=== PATIENT | female | born 1950 | race Caucasian/White ===

== ENCOUNTER 2017-04-27 13:30 | Inpatient (IN) | payer OTHER, MEDICARE ==
[~2017-04-27] VITALS: Ht 160 cm; Wt 69.0 kg
[2017-05-10] MEDS ORDERED: PANT40TA3 PO (15:23)
[2017-05-10] MEDS ORDERED: HYDR12.57 PO (15:23)
[2017-05-10] MEDS ORDERED: METO25TA3 PO (15:23)
[2017-05-10] MEDS ORDERED: ALPR0.25 PO (15:23)
[2017-05-11] MEDS ORDERED: DEXAMETHASONE SOD PHOS 4 MG/ML VIAL IV ONE (12:00)
[2017-05-11] MEDS ORDERED: LACTATED RINGER'S 1000 ML IV PRN (12:00)
[2017-05-11] MEDS ORDERED: NORMOSOL R INJ 2,000 ML IV ONE (12:00)
[2017-05-11] MEDS ORDERED: ONDANSETRON HCL 4 MG/2 ML VIAL IV ONE (12:00)
[2017-05-11] MEDS ORDERED: SODIUM CHLORID 0.9% 500 ML IV PRN (12:00)
[2017-05-11] MEDS ORDERED: INSULIN HUMAN REGULAR 1,000 UNITS/10 ML VIAL SQ PRN (12:00)
[2017-05-11] MEDS ORDERED: CHLORHEXIDINE GLUCONATE 2 % 1 PACK (2 CLOTHS) TOPICAL PRN (12:00)
[2017-05-11] MEDS ORDERED: METOPROLOL TARTRATE 25 MG TAB PO PRN (12:00)
[2017-05-11] MEDS ORDERED: POVIDONE IODINE 5% (ANTISEPSIS KIT) 4 APPLICATIONS EACH NARE PRN (12:00)
[2017-05-11] MEDS ORDERED: LIDOCAINE HCL 1% PF 5 ML SYRINGE OTHER ONE (12:00)
[2017-05-11] MEDS ORDERED: PHENYLEPH/NS 1000 MCG/10 ML SYR IV ONE (12:00)
[2017-05-11] MEDS ORDERED: PROPOFOL 200 MG/20 ML AMP IV ONE (12:00)
[2017-05-11] MEDS ORDERED: ROCURONIUM INJ 50 MG/5 ML SYRINGE IV PUSH ONE (12:00)
[2017-05-11] MEDS ORDERED: ePHEDrine/NS 25 MG/5 ML SYRINGE IV ONE (12:00)
[2017-05-11 12:34] LABS: PROTHROMBIN TIME - PATIENT 10.3 SEC (9.8-11.6)
[2017-05-11] MEDS ORDERED: ceFAZolin INJ 1,000 MG VIAL ONE (13:06)
[2017-05-11] MEDS ORDERED: ACETAMINOPHEN 1000 MG/100 ML 100 ML IV ONE (15:19)
[2017-05-11] MEDS ORDERED: SUGAMMADEX SODIUM 200 MG/2 ML VIAL IV PUSH ONE (16:36)
[2017-05-11] MEDS ORDERED: MORPHINE SULFATE 4 MG/ML INJ IV PUSH PRN (16:45)
[2017-05-11] MEDS ORDERED: ONDANSETRON HCL 4 MG/2 ML VIAL IV PUSH PRN (16:45)
[2017-05-11] MEDS ORDERED: ALPRAZolam 0.25 MG TAB PO PRN (17:00)
[2017-05-11] MEDS: FAMOTIDINE 20 MG/2 ML VIAL IV PUSH SCH (17:00)
[2017-05-11] MEDS: SODIUM CHLOR 0.9% 1000 ML INJ 1,000 ML IV SCH (17:15)
[2017-05-11] MEDS ORDERED: DO NOT ADM ANY ANTICOAGULANT DRUGS PRN (17:17)
[2017-05-11] MEDS ORDERED: MIDAZOLAM HCL 2 MG/2 ML VIAL ONE (17:21)
--- NOTE | 2017-05-11 17:30 | MP ---
cc: Branden Mcgowan MD DATE OF OPERATION: 05/11/2017 PREOPERATIVE DIAGNOSIS: Left renal mass. POSTOPERATIVE DIAGNOSIS: Left renal mass. PROCEDURE PERFORMED: Robotic-assisted laparoscopic left radical nephrectomy. SURGEON: Branden Mcgowan MD ANALOG DESIGN ENGINEER: Obey Gillespie MD ANESTHESIA: General. COMPLICATIONS: None. PREOPERATIVE ANTIBIOTICS: Ancef 1 gram IV. DRAINS: Shabazz catheter. SPECIMENS: Left kidney for permanent. BLOOD LOSS: 100 mL FLUIDS: 2 L. DISPOSITION: Stable to recovery. INDICATIONS: The patient is a 67-year-old female who was found to have a large left renal mass consistent with renal cell carcinoma. Treatment options were discussed including open versus laparoscopic radical nephrectomy. She elected to proceed with laparoscopic radical nephrectomy. After risks, benefits, and alternatives were explained to the patient including the risk of renal failure, anesthetic risks, risk of conversion to open, patient elected to proceed. Informed consent was obtained. DETAILS OF PROCEDURE: The patient was properly identified, brought back to the operating room, was laid supine on the operating table. Appropriate timeout was performed. Under direction of anesthesiology, patient was immediately induced under general anesthetic. Preoperative antibiotics in the form of Ancef 1 gram IV was given 1 hour prior to procedure. A 16-Kazakh Shabazz catheter was then placed under sterile technique and clear yellow urine returned. The patient was then placed in right lateral decubitus position with left side up. All pressure points were padded. The patient was then prepped and draped in normal sterile surgical fashion. A stab incision was made superior and lateral to the umbilicus, triangulated off of the xiphoid process and 12th rib. Penetrating towel clips were then used to grasp each side of the incision and were held up as I passed the Veress needle into the abdominal cavity. Insufflation was then achieved. Under direct visualization, I then passed a 12 mm long camera port. The abdominal cavity was inspected. She had some midline adhesions from her prior hysterectomy. She also had a very small anterior abdominal adhesion as well. There was no evidence of intra-abdominal injury including bleeding. At this time, 3 other ports were then placed under direct visualization, including two 8 mm robotic ports that were triangulated off the camera port, as well as a 12 mm fleet administrative assistant port in the midline superior to umbilicus. The robot was then brought in position. I began by taking the white line of Toldt down, reflecting the colon medially, which exposed the retroperitoneum. The patient had a very large kidney with a significant amount of perinephric fat, likely from the large mass. There were also several mini parasitic vessels. These were taken with electrocautery. At this time, as I dissected the colon off of the kidney, this exposed the left gonadal vein and ureter. I found a plane between the ureter and the psoas muscle. I then marched posterior dissection off the kidney towards the renal hilum following the left renal vein. I found the left gonadal vein attaching to the left renal vein. This was divided and taken with a robotic vessel sealer. At this time, the vein and artery were each circumferentially dissected and taken separately with the endovascular MARY stapler. There was only a single artery and vein. At this time, the lateral and superior attachments were then divided with both electrocautery and blunt dissection. The adrenal gland was spared. At this time, I then took the ureter inferiorly and the entire kidney was free. It was then placed in an EndoCatch bag for later removal. The renal fossa and adrenal bed were inspected for any bleeding. of Liz 3 gm were then applied to this area for hemostatic purposes. The kidney was then extracted through the left lower quadrant incision after extending the incision. It was then closed with a running 1-0 PDS. Several separate 1-0 PDS were placed as well, [id number] stitches. A second look was then placed in the abdominal cavity. The underside of the incision appeared to be free of bowel. There was no evidence of any bleeding within the abdominal cavity. All ports were removed under direct visualization. Incisions were closed with 3-0 Vicryl and 4-0 Monocryl. The sponge, instrument and needle count was correct at the end the case. This concluded the procedure. The patient was extubated and sent to recovery in stable condition. She will be transferred to the floor for routine postoperative care. MD BRAIN Guy/ALICIA , 04:56 PM , 05:29 PM
[2017-05-11 17:53] LABS: AUTOMATED NEUTROPHIL # 9.2 TH/MM3 (1.8-7.7); BASOPHIL % 0.2 % (0.0-2.0); EOSINOPHIL % 0.1 % (0.0-4.0); HEMOGLOBIN 10.5 GM/DL (11.6-15.3); LYMPH % 13.5 % (9.0-44.0); LYMPHOCYTE # 1.5 TH/MM3 (1.0-4.8); MEAN CORPUSCULAR HEMOGLOBIN 26.4 PG (27.0-34.0); MEAN CORPUSCULAR HGB CONC 33.9 % (32.0-36.0); MEAN PLATELET VOLUME 7.1 FL (7.0-11.0); MONO % 3.1 % (0.0-8.0); MONOCYTE # 0.3 TH/MM3 (0-0.9); NEUT % 83.1 % (16.0-70.0); PLATELET COUNT 272 TH/MM3 (150-450); RED BLOOD COUNT 3.98 MIL/MM3 (4.00-5.30); RED CELL DISTRIBUTION WIDTH 15.8 % (11.6-17.2); WHITE BLOOD COUNT 11.1 TH/MM3 (4.0-11.0)
[2017-05-11 18:10] LABS: BICARBONATE 24.4 MEQ/L (21.0-32.0); CREATININE 1.04 MG/DL (0.50-1.00)
[2017-05-11] MEDS ORDERED: POTASSIUM CHLORIDE 10 MEQ CAP PO ONE (18:45)
[2017-05-11] MEDS ORDERED: MAGNESIUM SULFATE 1 GM PREMIX 100 ML IV PRN (18:45)
[2017-05-11] MEDS ORDERED: POTASSIUM CHLORIDE 20 MEQ PWD PACKET PO ONE (18:45)
[2017-05-11 18:51] LABS: MAGNESIUM 1.9 MG/DL (1.5-2.5)
[2017-05-11] MEDS ORDERED: *morphine SULFATE 4 MG/ML PERIprocedure ONLY ONE (19:00)
--- NOTE | 2017-05-11 19:36 | RADRPT ---
EXAM DATE/TIME: 05/11/2017 18:16 [facility] COMPARISON: No previous studies available for comparison. INDICATIONS : Central line placement done in or. MEDICAL HISTORY : None. SURGICAL HISTORY : None. ENCOUNTER: Initial ACUITY: 1 day PAIN SCORE: 0/10 LOCATION: Bilateral chest FINDINGS: Right-sided central line tip in superior vena cava without pneumothorax. Subsegmental perihilar and b asilar airspace disease. Extensive air in the subcutaneous tissues of the left chest extending into t he left breast of unknown etiology. Also subcutaneous air in the lower right chest. CONCLUSION: 1. Right central line in superior vena cava without pneumothorax. 2. Extensive subcutaneous air in the lower chest left greater than right. Anuj Gibbs MD on May 11, 2017 at 19:33 Board Certified Radiologist. This report was verified electronically.
[2017-05-11 20:45] VITALS: BP 118/58; PULSE 75; RESP 17; TEMP 97.7; O2SAT 97
[2017-05-11] MEDS: METOPROLOL TARTRATE 25 MG TAB PO SCH (21:03)
[2017-05-11] MEDS: DOCUSATE SODIUM 100 MG CAP PO SCH (21:03)
[2017-05-11] MEDS: ACETAMINOPHEN 1000 MG/100 ML 100 ML IV SCH (21:06)
[2017-05-11 23:45] VITALS: BP 105/56; PULSE 73; RESP 16; TEMP 98.1; O2SAT 97
[2017-05-12] MEDS: SODIUM CHLOR 0.9% 1000 ML INJ 1,000 ML IV SCH ×2 (00:45→08:45)
[2017-05-12] MEDS: ACETAMINOPHEN 1000 MG/100 ML 100 ML IV SCH ×2 (04:15→08:58)
[2017-05-12] MEDS: FAMOTIDINE 20 MG/2 ML VIAL IV PUSH SCH (04:15)
[2017-05-12 04:30] VITALS: BP 97/53; PULSE 65; RESP 16; TEMP 97.4; O2SAT 96
[2017-05-12 07:35] VITALS: BP 103/56; PULSE 60; RESP 18; TEMP 97.5; O2SAT 100
[2017-05-12 07:45] LABS: HEMATOCRIT 31.2 % (35.0-46.0); HEMOGLOBIN 10.4 GM/DL (11.6-15.3); MEAN CELL VOLUME 79.3 FL (80.0-100.0); MEAN CORPUSCULAR HEMOGLOBIN 26.6 PG (27.0-34.0); MEAN CORPUSCULAR HGB CONC 33.5 % (32.0-36.0); MEAN PLATELET VOLUME 7.6 FL (7.0-11.0); PLATELET COUNT 251 TH/MM3 (150-450); RED BLOOD COUNT 3.93 MIL/MM3 (4.00-5.30); RED CELL DISTRIBUTION WIDTH 15.8 % (11.6-17.2); WHITE BLOOD COUNT 7.3 TH/MM3 (4.0-11.0)
[2017-05-12 07:55] LABS: BICARBONATE 23.9 MEQ/L (21.0-32.0); CALCIUM 8.1 MG/DL (8.5-10.1); CREATININE 1.3 MG/DL (0.50-1.00)
[2017-05-12] MEDS: HYDROCHLOROTHIAZIDE 12.5 MG CAP PO SCH (08:55)
[2017-05-12] MEDS: METOPROLOL TARTRATE 25 MG TAB PO SCH ×2 (08:55→20:56)
[2017-05-12] MEDS: DOCUSATE SODIUM 100 MG CAP PO SCH ×2 (08:59→20:56)
[2017-05-12] MEDS: PANTOPRAZOLE SOD 40 MG DELAYED RELEASE TAB PO SCH (08:59)
[2017-05-12 11:56] VITALS: BP 130/69; PULSE 70; RESP 18; TEMP 97.9; O2SAT 96
--- NOTE | 2017-05-12 12:59 | HHI.PR ---
Subjective Patient symptoms today feels good. Denies pain. voiding on own. Has been OOB. tolerating clears. Wants regular food. Denies CP/SOB. Objective Vital Signs Vital Signs Date Time Temp Pulse Resp B/P (MAP) Pulse Ox O2 Delivery O2 Flow Rate FiO2 05/12/17 11:56 97.9 70 18 130/69 (89) 96 05/12/17 09:58 16 05/12/17 09:28 18 05/12/17 07:35 97.5 60 18 103/56 (72) 100 05/12/17 04:30 97.4 65 16 97/53 (68) 96 05/11/17 23:45 98.1 73 16 105/56 (72) 97 05/11/17 20:45 97.7 75 17 118/58 (78) 97 05/11/17 20:40 78 16 122/59 (80) 99 Nasal Cannula 3 05/11/17 20:30 77 16 120/64 (82) 99 Nasal Cannula 3 05/11/17 20:15 76 16 120/59 (79) 99 Nasal Cannula 3 05/11/17 20:00 76 16 116/58 (77) 100 Nasal Cannula 3 05/11/17 19:45 74 16 117/56 (76) 100 Nasal Cannula 3 05/11/17 19:15 72 16 107/59 (75) 100 Nasal Cannula 3 05/11/17 18:45 72 16 117/59 (78) 99 Nasal Cannula 3 05/11/17 18:15 67 16 110/56 (74) 99 Nasal Cannula 3 05/11/17 18:00 66 16 118/55 (76) 99 Nasal Cannula 3 05/11/17 17:45 66 17 109/59 (76) 99 Nasal Cannula 3 05/11/17 17:30 67 16 115/57 (76) 99 Nasal Cannula 3 05/11/17 17:15 69 14 117/64 (81) 100 Nasal Cannula 3 05/11/17 17:12 97.3 72 14 110/60 (77) 96 Nasal Cannula 3 Intake & Output 05/12/17 05/12/17 07:00 19:00 Intake Total 690 ml Output Total 475 ml Balance 215 ml Intake Oral 240 ml IV Total 450 ml Output Urine Total 475 ml # Bowel Movements 0 Result Diagram: 05/12/17 0544 05/12/17543 Objective Remarks NAD. A/O x 3 CTAB RRR abd soft, NT, ND. incisions healing well. Ext NT. No edema. EPc cuffs on and working Medications and IVs Current Medications Medications (Trade) Dose Ordered Sig/Bernard Route Start Time Stop Time Status Last Admin Lactated Ringer's 1,000 ml @ 30 mls/hr Q24H PRN IV 05/11/17 12:00 05/14/17 11:59 05/11/17 12:35 Sodium Chloride 500 ml @ 30 mls/hr [id number] PRN IV 05/11/17 12:00 05/14/17 11:59 (Lopressor) 25 mg SEISMIC OBSERVER PRN PO 05/11/17 12:00 05/14/17 11:59 (Betadine 5% Antisepsis Kit) 1 applic SEISMIC OBSERVER PRN EACH NARE 05/11/17 12:00 05/14/17 11:59 05/11/17 12:35 (Chlorhexidine 2% Cloth) 3 pack SEISMIC OBSERVER PRN TOPICAL 05/11/17 12:00 05/14/17 11:59 05/11/17 12:35 (NovoLIN R INJ) See Protocol Table ... SEISMIC OBSERVER PRN SQ 05/11/17 12:00 05/14/17 11:59 Sodium Chloride 1,000 ml @ 125 mls/hr Q8H IV 05/11/17 16:45 05/12/17 00:45 (Colace) 100 mg BID PO 05/11/17 21:00 05/12/17 08:59 (Roxicodone) 10 mg Q4H PRN PO 05/11/17 16:45 05/12/17 08:58 Acetaminophen 100 ml @ 400 mls/hr Q6H IV 05/11/17 21:00 05/12/17 08:58 (Zofran Inj) 4 mg Q6HR PRN IV PUSH 05/11/17 16:45 (Morphine Inj) 4 mg Q3H PRN IV PUSH 05/11/17 16:45 05/11/17 22:33 (Xanax) 0.25 mg Q6H PRN PO 05/11/17 17:00 05/12/17 04:15 (Microzide) 12.5 mg DAILY PO 4/4/18 09:00 (Lopressor) 25 mg BID PO 05/11/17 21:00 05/11/17 21:03 (Protonix) 40 mg DAILY PO 05/12/17 09:00 05/12/17 08:59 Miscellaneous Information ALL NURSING DEPARTME... UNSCH PRN .XX 05/11/17 17:17 05/12/17 17:16 Magnesium Sulfate/ Dextrose 100 ml @ 100 mls/hr ONCE PRN IV 05/11/17 18:45 05/12/17 23:59 (Pepcid) 10 mg BID PO 05/12/17 21:00 Assessment and Plan Assessment and Plan POD#1 s/p Left robotic Radical Nephrectomy, hypokalemia -Hgb stable. Hemodynamically stable. -Hypokalemia resolved. Repeat in A.M. -Advance diet -Ambulate, IS -Creatinine elevated as expected -Likely d/c home tomorrow Branden Mcgowan MD May 12, 2017 12:59
[2017-05-12] MEDS ORDERED: OXYC1TAB63 PO (13:02)
[2017-05-12] MEDS ORDERED: DOCU1CAP39 PO (13:02)
--- NOTE | 2017-05-12 13:24 | EKG ---
Date Performed: 05/11/2017 Time Performed: 12:10:05 PTAGE: 67 years EKG: Sinus rhythm MINIMAL VOLTAGE CRITERIA FOR LVH, CONSIDER NORMAL VARIANT NONSPECIFIC T-WAVE ABNORMALITY BORDERLINE ECG NO PREVIOUS TRACING DOCTOR: Roland Dickinson Interpretating Date/Time 05/12/2017 13:23:48
[2017-05-12] MEDS: oxyCODONE/ACETAMINOPHEN 5 MG/325 MG TAB PO PRN ×2 (15:22→21:00)
[2017-05-12 16:00] VITALS: BP 123/58; PULSE 80; RESP 18; TEMP 97.6; O2SAT 96
[2017-05-12 20:00] VITALS: BP 115/58; PULSE 84; RESP 18; TEMP 98.3; O2SAT 97
[2017-05-12] MEDS: FAMOTIDINE 20 MG TAB PO SCH (21:02)
[2017-05-13] VITALS: BP 103/50; PULSE 79; RESP 18; TEMP 97.3; O2SAT 95
[2017-05-13 04:30] VITALS: BP 109/58; PULSE 77; RESP 16; TEMP 96.6; O2SAT 97
[2017-05-13 06:30] LABS: BICARBONATE 25.1 MEQ/L (21.0-32.0); CALCIUM 8.1 MG/DL (8.5-10.1); CREATININE 1.41 MG/DL (0.50-1.00); MAGNESIUM 2.2 MG/DL (1.5-2.5)
[2017-05-13 08:00] VITALS: BP 110/52; PULSE 84; RESP 18; TEMP 97.5; O2SAT 97
[2017-05-13] MEDS: HYDROCHLOROTHIAZIDE 12.5 MG CAP PO SCH (09:00)
[2017-05-13] MEDS: FAMOTIDINE 20 MG TAB PO SCH (09:00)
[2017-05-13] MEDS: METOPROLOL TARTRATE 25 MG TAB PO SCH (09:00)
[2017-05-13] MEDS: DOCUSATE SODIUM 100 MG CAP PO SCH (09:22)
[2017-05-13] MEDS: PANTOPRAZOLE SOD 40 MG DELAYED RELEASE TAB PO SCH (09:23)
[2017-05-13] MEDS: oxyCODONE/ACETAMINOPHEN 5 MG/325 MG TAB PO PRN ×2 (09:26→15:36)
[2017-05-13 12:00] VITALS: BP 124/64; PULSE 77; RESP 18; TEMP 97.3; O2SAT 97
--- NOTE | 2017-05-13 14:32 | HHI.PR ---
Subjective Patient symptoms today Pt is s/p Left robotic radical nephrectomy. POD #2. Had hypokalemia post/op, corrected now. no pain, not using pain meds a lot. no f/c/n/v, labs are ok, has slightly elevated Cr. Ambulates and tolerated normal diet well. Voids without difficulties. No BM yet, + belching. Objective Vital Signs Vital Signs Date Time Temp Pulse Resp B/P (MAP) Pulse Ox O2 Delivery O2 Flow Rate FiO2 05/13/17 12:00 97.3 77 18 124/64 (84) 97 05/13/17 08:00 97.5 84 18 110/52 (71) 97 05/13/17 04:30 96.6 77 16 109/58 (75) 97 05/13/17 00:00 97.3 79 18 103/50 (67) 95 05/12/17 20:00 98.3 84 18 115/58 (77) 97 05/12/17 16:22 16 05/12/17 16:00 97.6 80 18 123/58 (79) 96 Intake & Output 05/13/17 05/13/17 07:00 19:00 Intake Total 120 ml Balance 120 ml Intake Oral 120 ml # Voids 1 # Bowel Movements 0 Result Diagram: 05/12/17 0544 05/13/17 0506 Objective Remarks NAD. A/O x 3 Lungs are clear, no wheezing. RRR abd soft, NT, ND. incisions healing well. Medications and IVs Current Medications Medications (Trade) Dose Ordered Sig/Bernard Route Start Time Stop Time Status Last Admin Lactated Ringer's 1,000 ml @ 30 mls/hr Q24H PRN IV 05/11/17 12:00 05/14/17 11:59 05/11/17 12:35 Sodium Chloride 500 ml @ 30 mls/hr [id number] PRN IV 05/11/17 12:00 05/14/17 11:59 (Lopressor) 25 mg TRANSPLANT SURGEON PRN PO 05/11/17 12:00 05/14/17 11:59 (Betadine 5% Antisepsis Kit) 1 applic TRANSPLANT SURGEON PRN EACH NARE 05/11/17 12:00 05/14/17 11:59 05/11/17 12:35 (Chlorhexidine 2% Cloth) 3 pack TRANSPLANT SURGEON PRN TOPICAL 05/11/17 12:00 05/14/17 11:59 05/11/17 12:35 (NovoLIN R INJ) See Protocol Table ... TRANSPLANT SURGEON PRN SQ 05/11/17 12:00 05/14/17 11:59 (Colace) 100 mg BID PO 05/11/17 21:00 05/13/17 09:22 (Zofran Inj) 4 mg Q6HR PRN IV PUSH 05/11/17 16:45 (Morphine Inj) 4 mg Q3H PRN IV PUSH 05/11/17 16:45 05/11/17 22:33 (Xanax) 0.25 mg Q6H PRN PO 05/11/17 17:00 05/12/17 04:15 (Microzide) 12.5 mg DAILY PO 05/12/17 09:00 (Lopressor) 25 mg BID PO 05/11/17 21:00 05/12/17 20:56 (Protonix) 40 mg DAILY PO 05/12/17 09:00 05/13/17 09:23 (Pepcid) 10 mg BID PO 05/12/17 21:00 05/12/17 21:02 (Percocet 5-325 Mg) 2 tab Q4H PRN PO 05/12/17 13:00 05/13/17 09:26 Assessment and Plan Assessment and Plan POD#2 s/p Left robotic Radical Nephrectomy, hypokalemia -Hgb stable. Hemodynamically stable. -Hypokalemia resolved. - tolerates regular diet well -Ambulates without difficulties -Creatinine elevated as expected -Discharge is initiated Pt to be d/c home today with Rx for Stool softner and pain meds Follow up with Dr Mcgowan in clinic in 1 week Darrian Horvath May 13, 2017 14:32
== END 2017-05-13 15:41 | disposition home or self-care (01) | DRG 658 ==
LOC: HSDI 05-11 11:21 → N06B 05-11 20:47
PROVIDERS: ADMIT Urology; ATTEND Urology
PROC: 8E0W4CZ Robotic Assisted Procedure of Trunk Region, Percutaneous Endoscopic Approach (ICD-10-PCS; 2017-05-11)
PROC: 0T9B70Z Drainage of Bladder with Drainage Device, Via Natural or Artificial Opening (ICD-10-PCS; 2017-05-11)
PROC: 0TT14ZZ Resection of Left Kidney, Percutaneous Endoscopic Approach (ICD-10-PCS; principal; 2017-05-11 13:28)
DX: D49.512 Neoplasm of unspecified behavior of left kidney (principal); E87.6 Hypokalemia
CPT/HCPCS: 36430; 71045; 80048; 83735; 84132; 85025; 85027; 85610; 86850; 86900; 86901; 86920; 88307; 93005; J0131; J0690; J1100; J2250; J2270; J2370; J2405; J3010; J7030; J7120; P9016